=== PATIENT | male | born 1950 | race Hispanic/Latino ===

== ENCOUNTER → 2017-06-03 | Outpatient (CLI) | payer OTHER ==
[~2017-06-03] MED LIST: ASPI-1005 PO; CLOP75TA14 PO; FLUT16H NASAL; LISI10TA7 PO; METF10004 PO; METO25TA6 PO; MONT10TA24 PO; QUET25TA74 PO; RANO500T2 PO; REGADENOSON 0.4 MG/5 ML PF SYG IVP SCH; SIMV10TA6 PO
== END | disposition home or self-care (01) ==
LOC: RAH 09:04
PROVIDERS: ATTEND Internal Medicine Cardiovascular Disease
DX: I25.119 Atherosclerotic heart disease of native coronary artery with unspecified angina pectoris (principal); I10 Essential (primary) hypertension
CPT/HCPCS: 78452; 93017; 96374; A9500 ×2; J2785

== ENCOUNTER 2017-06-18 09:42 | Day surgery (SDC) | payer OTHER ==
[2017-06-16 14:46] VITALS: BP 151/77
[2017-06-16 14:58] LABS: BASOPHILS % (AUTO) 0.8 % (0.0-5.0); HEMATOCRIT 40.7 % (42-54); LYMPHOCYTES % (AUTO) 25.7 % (21.0-51.0); MEAN CORPUSCULAR HEMOGLOBIN 30.6 pg (27.0-33.0); MEAN CORPUSCULAR HGB CONC 34.3 g/dL (32.0-36.0); NEUTROPHILS % (AUTO) 63.5 % (40.0-77.0); PLATELET COUNT (AUTO) 140 K/uL (130-400); RED BLOOD CELL COUNT(AUTO) 4.57 MIL/uL (4.50-6.20); RED CELL DISTRIBUTION WIDTH 13.7 % (11.0-15.5)
[2017-06-16 15:04] LABS: CREATININE 0.9 mg/dL (0.5-1.5)
[2017-06-16 15:06] LABS: INR 1.02 (0.85-1.15); PROTHROMBIN TIME 10.7 SEC (9.6-11.6)
[2017-06-16 15:34] LABS: APPEARANCE,URINE Clear (CLEAR); BILIRUBIN,URINE Negative (NEGATIVE); COLOR,URINE Yellow (YELLOW); GLUCOSE, URINE (UA) Negative (NEGATIVE); KETONES,URINE Negative (NEGATIVE); LEUKOCYTE ESTERASE ,URINE Negative (NEGATIVE); NITRATE,URINE Negative (NEGATIVE); OCCULT BLOOD,URINE Negative (NEGATIVE); PROTEIN,URINE Negative (NEGATIVE); UROBILINOGEN,URINE 0.2 mg/dL (0.2-1.0)
[~2017-06-18] VITALS: Ht 175.3 cm; Wt 92.5 kg
[2017-06-18] VITALS (12 sets, daily range): BP systolic 108–141; BP diastolic 59–73
[~2017-06-18 09:42] MED LIST changes: -FLUT16H NASAL; -MONT10TA24 PO; -RANO500T2 PO; -REGADENOSON 0.4 MG/5 ML PF SYG IVP SCH
[2017-06-18] MEDS ORDERED: SODIUM CHLORIDE 0.9% 1000ML 1,000 ML IV ONE (09:55)
[2017-06-18] MEDS ORDERED: RANO500T2 PO (10:17)
[2017-06-18] MEDS ORDERED: LIDOCAINE HCL 2% 20ML ONE (10:44)
[2017-06-18] MEDS ORDERED: IOPAMIDOL-370 100 ML VIAL IV ONE (10:44)
[2017-06-18] MEDS ORDERED: BIVALIRUDIN 250 MG/VIAL IV ONE (10:44)
[2017-06-18] MEDS ORDERED: NITROGLYCERIN 5 MG/ML 10 ML VIAL IV ONE (10:44)
[2017-06-18] MEDS ORDERED: ISOVUE-370 50ML VIAL IV ONE (10:44)
[2017-06-18] MEDS ORDERED: HEPARIN SODIUM 1000UNIT/ML 10ML VIAL ONE (10:44)
[2017-06-18] MEDS ORDERED: MIDAZOLAM HCL 1 MG/ML 2ML VIAL ONE (11:18)
[2017-06-18] MEDS ORDERED: FENTANYL CITRATE PF 50 MCG/1 ML 2ML VIAL ONE (11:18)
[2017-06-18] MEDS ORDERED: SODIUM CHLORIDE 0.9% 1000ML 1,000 ML IV SCH (11:39)
[2017-06-18] MEDS ORDERED: ACETAMINOPHEN-CODEINE 300/30MG TAB PO PRN (11:45)
[2017-06-18] MEDS ORDERED: DEXTROSE 50%-WATER 50 ML DISP.SYRIN IV PRN (11:45)
[2017-06-18] MEDS ORDERED: NITROGLYCERIN 0.4 MG SL TAB SL PRN (11:45)
[2017-06-18] MEDS ORDERED: GLUCAGON 1MG KIT 1 MG ML IM PRN (11:45)
== END 2017-06-18 17:25 | disposition home or self-care (01) ==
LOC: DAH 09:42
PROVIDERS: ATTEND Internal Medicine Cardiovascular Disease
DX: I25.118 Atherosclerotic heart disease of native coronary artery with other forms of angina pectoris (principal); I25.2 Old myocardial infarction; Z79.899 Other long term (current) drug therapy; N40.0 Benign prostatic hyperplasia without lower urinary tract symptoms; E11.9 Type 2 diabetes mellitus without complications; Z79.84 Long term (current) use of oral hypoglycemic drugs; Z83.3 Family history of diabetes mellitus; I10 Essential (primary) hypertension
CPT/HCPCS: 36415; 71045; 80048; 81003; 82948 ×2; 85025; 85610; 85730; 93005; 93458; A4606; C1760; C1894 ×2; J1644; J2250; J3010; J3490 ×2; J7030; Q9967 ×2; 99152; 99153; J0583

== ENCOUNTER → 2017-08-06 | Outpatient (CLI) | payer OTHER ==
[~2017-08-06] MED LIST changes: +RANO500T2 PO
== END | disposition home or self-care (01) ==
LOC: RAH 11:00
PROVIDERS: ATTEND Internal Medicine Cardiovascular Disease
DX: I72.8 Aneurysm of other specified arteries (principal)
CPT/HCPCS: 76882

== ENCOUNTER → 2021-08-13 | Outpatient (CLI) | payer OTHER ==
[~2021-08-13] VITALS: Ht 180.3 cm; Wt 86.6 kg
[~2021-08-13] MED LIST changes: +AMLO-258 PO; +ATOR40TA69 PO; +LISI10TA24 PO; -LISI10TA7 PO; +METF-444 PO; +METF-446 PO; -METF10004 PO; +METO50TA18 PO; +OLME40TA18 PO; +QUET25TA36 PO; -QUET25TA74 PO; +REGADENOSON 0.4 MG/5 ML PF SYG IVP SCH; -SIMV10TA6 PO; +SIMV10TA97 PO
== END | disposition home or self-care (01) ==
LOC: SHCH 08:17
PROVIDERS: ATTEND Internal Medicine Cardiovascular Disease
DX: I25.119 Atherosclerotic heart disease of native coronary artery with unspecified angina pectoris (principal); I24.9 Acute ischemic heart disease, unspecified; I51.7 Cardiomegaly; R94.39 Abnormal result of other cardiovascular function study; Z95.5 Presence of coronary angioplasty implant and graft
CPT/HCPCS: 78452; 93017; 96374; A9500 ×2; J2785

== ENCOUNTER 2021-08-21 06:04 | Day surgery (SDC) | payer OTHER ==
[2021-08-20 11:35] LABS: BASOPHILS % (AUTO) 0.8 % (0.0-5.0); EOSINOPHILS % (AUTO) 2.3 % (0.0-8.0); MEAN CORPUSCULAR HEMOGLOBIN 31.3 pg (27.0-33.0); MEAN CORPUSCULAR HGB CONC 33.7 g/dL (32.0-36.0); MEAN CORPUSCULAR VOLUME 92.9 fL (79-99); MONOCYTES % (AUTO) 8.9 % (3.0-13.0); NEUTROPHILS % (AUTO) 56.7 % (40.0-77.0); PLATELET COUNT (AUTO) 142 K/uL (130-400); RED BLOOD CELL COUNT(AUTO) 4.09 MIL/uL (4.50-6.20); RED CELL DISTRIBUTION WIDTH 12.5 % (11.0-15.5); WHITE BLOOD COUNT (AUTO) 6.2 K/uL (4.8-10.8)
[2021-08-20 11:42] LABS: CREATININE 0.9 mg/dL (0.5-1.5); POTASSIUM 4.4 mmol/L (3.5-5.1)
[2021-08-20 12:02] LABS: B-TYPE NATRIURETIC PEPTIDE 62 pg/mL (0-100)
[2021-08-20 12:12] LABS: INR 1.08 (0.85-1.15); PARTIAL THROMBOPLASTIN TIME 26.1 SEC (26.3-35.5); PROTHROMBIN TIME 11.1 SEC (9.6-11.6)
[2021-08-20 12:34] LABS: APPEARANCE,URINE Clear (CLEAR); BILIRUBIN,URINE Negative (NEGATIVE); COLOR,URINE Yellow (YELLOW); GLUCOSE, URINE (UA) Negative (NEGATIVE); KETONES,URINE Negative (NEGATIVE); LEUKOCYTE ESTERASE ,URINE Negative (NEGATIVE); NITRATE,URINE Negative (NEGATIVE); OCCULT BLOOD,URINE Negative (NEGATIVE); PH,URINE 6.5 (5.0-8.0); PROTEIN,URINE Negative (NEGATIVE); UROBILINOGEN,URINE 0.2 mg/dL (0.2-1.0)
[2021-08-20 14:06] VITALS: BP 151/74
[2021-08-21] VITALS (14 sets, daily range): BP systolic 95–137; BP diastolic 53–68
[~2021-08-21] VITALS: Ht 180.3 cm; Wt 88.1 kg
[~2021-08-21 06:04] MED LIST changes: +0.9%NACL 1000ML 1,000 ML IV SCH; -ASPI-1005 PO; -LISI10TA24 PO; -METF-446 PO; -METO25TA6 PO; -RANO500T2 PO; -REGADENOSON 0.4 MG/5 ML PF SYG IVP SCH; -SIMV10TA97 PO
[2021-08-21] MEDS ORDERED: IOHEXOL-350 50ML VIAL IV ONE (07:09)
[2021-08-21] MEDS ORDERED: IOHEXOL 350 MG/ML 100ML INFUS..BTL IV ONE (07:09)
[2021-08-21] MEDS ORDERED: MIDAZOLAM HCL 1 MG/ML 2ML VIAL ONE (07:10)
[2021-08-21] MEDS ORDERED: FENTANYL CITRATE PF 50 MCG/1 ML 2ML VIAL ONE (07:10)
[2021-08-21] MEDS ORDERED: LIDOCAINE HCL 1% MDV 50ML VIAL ONE (07:10)
[2021-08-21] MEDS ORDERED: NITROGLYCERIN 50MG VIAL ONE (07:32)
[2021-08-21] MEDS ORDERED: BIVALIRUDIN 250 MG/VIAL IV ONE (07:44)
[2021-08-21] MEDS ORDERED: IOHEXOL-350 75 ML VIAL IV ONE (07:56)
[2021-08-21] MEDS ORDERED: ASPIRIN 81MG CHEW TAB ONE (08:26)
[2021-08-21] MEDS ORDERED: CLOPIDOGREL 300MG TAB ONE (08:27)
[2021-08-21] MEDS ORDERED: METOPROLOL TARTRATE 1 MG/ML 5ML VIAL IV PRN (09:00)
[2021-08-21] MEDS ORDERED: NITROGLYCERIN 0.4 MG SL TAB SL PRN (09:00)
[2021-08-21] MEDS ORDERED: HYDRALAZINE 20MG/ML VIAL IV PRN (09:00)
[2021-08-21] MEDS ORDERED: 0.9%NACL 1000ML 1,000 ML IV SCH (09:00)
[2021-08-21] MEDS ORDERED: GLUCAGON 1MG KIT 1 MG ML IM PRN (09:00)
[2021-08-21] MEDS ORDERED: 0.9% NACL 500ML IV.SOLN 500 ML IV SCH (09:00)
[2021-08-21] MEDS ORDERED: DEXTROSE 50%-WATER 50 ML DISP.SYRIN IV PRN (09:00)
[2021-08-21] MEDS ORDERED: ATROPINE 1MG SYG IVP ONE (10:09)
[2021-08-21] MEDS ORDERED: INSULIN HUMULIN R 100 UNIT/ML 3ML SQ SCH (11:30)
== END 2021-08-21 15:20 | disposition home or self-care (01) ==
LOC: DAH 06:04
PROVIDERS: ATTEND Internal Medicine Cardiovascular Disease
DX: I25.110 Atherosclerotic heart disease of native coronary artery with unstable angina pectoris (principal); I11.9 Hypertensive heart disease without heart failure; E11.59 Type 2 diabetes mellitus with other circulatory complications; E78.5 Hyperlipidemia, unspecified; G47.00 Insomnia, unspecified; I24.9 Acute ischemic heart disease, unspecified; Z79.01 Long term (current) use of anticoagulants; Z79.899 Other long term (current) drug therapy; Z98.890 Other specified postprocedural states; Z95.5 Presence of coronary angioplasty implant and graft; Z79.84 Long term (current) use of oral hypoglycemic drugs; Z82.49 Family history of ischemic heart disease and other diseases of the circulatory system; Z83.3 Family history of diabetes mellitus; Z87.891 Personal history of nicotine dependence
CPT/HCPCS: 36415; 71045; 80048; 81003; 82948 ×2; 83880; 85025; 85610; 85730; 93005 ×2; 93458; A4215; A4216; A4221; A4222; A4223 ×3; A4606; A4663; C1725; C1769; C1874; C1887; C1894 ×2; C9600; J0461; J0583; J1644 ×2; J2250; J3010; J3490 ×2; J7030 ×2; Q9965 ×2; Q9967 ×3; 99156; 99157

== ENCOUNTER 2021-08-27 17:40 | Inpatient (IN) | payer OTHER ==
[~2021-08-27] VITALS: Ht 180.3 cm; Wt 84.8 kg
[~2021-08-27 17:40] MED LIST changes: -0.9%NACL 1000ML 1,000 ML IV SCH
[2021-08-27 18:17] LABS: BASOPHILS % (AUTO) 0.6 % (0.0-5.0); EOSINOPHILS % (AUTO) 1.5 % (0.0-8.0); HEMATOCRIT 34.8 % (42-54); LYMPHOCYTES % (AUTO) 27.4 % (21.0-51.0); MEAN CORPUSCULAR HEMOGLOBIN 31.9 pg (27.0-33.0); MEAN CORPUSCULAR HGB CONC 35.1 g/dL (32.0-36.0); MEAN CORPUSCULAR VOLUME 91.1 fL (79-99); MONOCYTES % (AUTO) 9.6 % (3.0-13.0); NEUTROPHILS % (AUTO) 60.7 % (40.0-77.0); PLATELET COUNT (AUTO) 154 K/uL (130-400); RED BLOOD CELL COUNT(AUTO) 3.82 MIL/uL (4.50-6.20); RED CELL DISTRIBUTION WIDTH 12.5 % (11.0-15.5); WHITE BLOOD COUNT (AUTO) 5.4 K/uL (4.8-10.8)
[2021-08-27 18:22] LABS: POTASSIUM 3.6 mmol/L (3.5-5.1)
[2021-08-27] MEDS ORDERED: ASPIRIN 81MG CHEW TAB PO ONE (19:30)
[2021-08-27] MEDS: METOPROLOL TARTRATE 50 MG TAB PO SCH (23:50)
[2021-08-28] VITALS (7 sets, daily range): BP systolic 102–164; BP diastolic 49–76
[2021-08-28] MEDS ORDERED: NITROGLYCERIN 0.4 MG SL TAB SL PRN
[2021-08-28] MEDS ORDERED: POTASSIUM CHLORIDE 20MEQ/100ML 100 ML IV PRN
[2021-08-28] MEDS ORDERED: ZOLPIDEM TARTRATE 5 MG TAB PO PRN
[2021-08-28] MEDS ORDERED: MAGNESIUM 2GM PREMIX 50ML 50 ML IV PRN
[2021-08-28] MEDS ORDERED: POTASSIUM CHLORIDE 10% ELIXIR 20 MEQ/15 ML UDCUP PO PRN
[2021-08-28] MEDS ORDERED: GUAIFENESIN-DM 200/20 MG 10 ML PO PRN
[2021-08-28] MEDS ORDERED: GLUCAGON 1MG KIT 1 MG ML IM PRN
[2021-08-28] MEDS ORDERED: KCL 20 MEQ ERTAB PO PRN
[2021-08-28] MEDS ORDERED: MAG/ALUM/SIMETH 30 ML UDCUP PO PRN
[2021-08-28] MEDS ORDERED: ONDANSETRON 4MG INJ IV PRN
[2021-08-28] MEDS ORDERED: ACETAMINOPHEN 325 MG TAB PO PRN ×2
[2021-08-28] MEDS ORDERED: LACTULOSE 20 GM/30 ML UDCUP PO PRN
[2021-08-28] MEDS ORDERED: DEXTROSE 50%-WATER 50 ML DISP.SYRIN IV PRN
[2021-08-28] MEDS: ATORVASTATIN 40 MG TABLET PO SCH ×2 (00:22→20:09)
[2021-08-28] MEDS: ENOXAPARIN SODIUM 40 MG/0.4 ML SYRINGE SQ SCH ×2 (00:22→08:59)
[2021-08-28 06:01] LABS: BASOPHILS % (AUTO) 0.8 % (0.0-5.0); EOSINOPHILS % (AUTO) 1.7 % (0.0-8.0); HEMATOCRIT 34.1 % (42-54); LYMPHOCYTES % (AUTO) 31.5 % (21.0-51.0); MEAN CORPUSCULAR HEMOGLOBIN 31.1 pg (27.0-33.0); MEAN CORPUSCULAR HGB CONC 34.3 g/dL (32.0-36.0); MEAN CORPUSCULAR VOLUME 90.7 fL (79-99); MONOCYTES % (AUTO) 9.1 % (3.0-13.0); NEUTROPHILS % (AUTO) 56.6 % (40.0-77.0); PLATELET COUNT (AUTO) 143 K/uL (130-400); RED BLOOD CELL COUNT(AUTO) 3.76 MIL/uL (4.50-6.20); RED CELL DISTRIBUTION WIDTH 12.3 % (11.0-15.5)
[2021-08-28 06:11] LABS: ALBUMIN 3.5 g/dL (3.5-5.0); BILIRUBIN,TOTAL 0.5 mg/dL (0.2-1.0); CREATININE 0.8 mg/dL (0.5-1.5); POTASSIUM 3.5 mmol/L (3.5-5.1); TOTAL PROTEIN, SERUM 7.2 g/dL (6.0-8.3)
[2021-08-28] MEDS: INSULIN HUMULIN R 100 UNIT/ML 3ML SQ SCH ×4 (06:50→21:03)
[2021-08-28] MEDS: AMLODIPINE-BENAZEPRIL 5-10 MG PO SCH (08:58)
[2021-08-28] MEDS: CLOPIDOGREL 75MG TAB PO SCH (08:58)
[2021-08-28] MEDS: METOPROLOL TARTRATE 50 MG TAB PO SCH ×2 (08:58→20:09)
[2021-08-28] MEDS ORDERED: RANO500T6 PO (10:51)
[2021-08-28] MEDS ORDERED: ASPIRIN 81MG CHEW TAB PO ONE (12:30)
[2021-08-28] MEDS ORDERED: ENOXAPARIN SODIUM 80 MG/0.8 ML SQ SCH (18:30)
[2021-08-29 04:30] VITALS: BP 117/60
[2021-08-29 05:00] LABS: HEMATOCRIT 32.8 % (42-54); MEAN CORPUSCULAR HEMOGLOBIN 32.1 pg (27.0-33.0); MEAN CORPUSCULAR HGB CONC 35.4 g/dL (32.0-36.0); MEAN CORPUSCULAR VOLUME 90.9 fL (79-99); RED BLOOD CELL COUNT(AUTO) 3.61 MIL/uL (4.50-6.20); RED CELL DISTRIBUTION WIDTH 12.6 % (11.0-15.5); WHITE BLOOD COUNT (AUTO) 5.6 K/uL (4.8-10.8)
[2021-08-29 05:11] LABS: INR 1.1 (0.85-1.15); PROTHROMBIN TIME 11.9 SEC (9.6-11.6)
[2021-08-29 05:12] LABS: PARTIAL THROMBOPLASTIN TIME 29.6 SEC (26.3-35.5)
[2021-08-29 05:14] LABS: CREATININE 0.9 mg/dL (0.5-1.5); POTASSIUM 3.8 mmol/L (3.5-5.1)
[2021-08-29] MEDS: INSULIN HUMULIN R 100 UNIT/ML 3ML SQ SCH ×4 (06:20→20:55)
[2021-08-29 09:09] VITALS: BP 119/62
[2021-08-29] MEDS: ASPIRIN 81MG CHEW TAB PO SCH (11:03)
[2021-08-29] MEDS: METOPROLOL TARTRATE 50 MG TAB PO SCH ×2 (11:03→20:29)
[2021-08-29] MEDS: CLOPIDOGREL 75MG TAB PO SCH (11:04)
[2021-08-29] MEDS: AMLODIPINE-BENAZEPRIL 5-10 MG PO SCH (11:05)
[2021-08-29 11:08] VITALS: BP 125/66
[2021-08-29 12:00] VITALS: BP 124/63
[2021-08-29] MEDS ORDERED: MIDAZOLAM HCL 1 MG/ML 2ML VIAL ONE (15:48)
[2021-08-29] MEDS ORDERED: LIDOCAINE HCL 1% 20 ML VIAL ONE (15:48)
[2021-08-29] MEDS ORDERED: NITROGLYCERIN 50MG VIAL ONE (15:49)
[2021-08-29] MEDS ORDERED: IOHEXOL 350 MG/ML 100ML INFUS..BTL IV ONE (15:49)
[2021-08-29] MEDS ORDERED: IOHEXOL-350 50ML VIAL IV ONE (15:49)
[2021-08-29] MEDS ORDERED: FENTANYL CITRATE PF 50 MCG/1 ML 2ML VIAL ONE (15:49)
[2021-08-29] MEDS ORDERED: BIVALIRUDIN 250 MG/VIAL IV ONE (17:04)
[2021-08-29] MEDS ORDERED: 0.9%NACL 1000ML 1,000 ML IV SCH (18:00)
[2021-08-29] MEDS: ATORVASTATIN 40 MG TABLET PO SCH (20:55)
[2021-08-29] MEDS ORDERED: ENOXAPARIN SODIUM 80 MG/0.8 ML SQ SCH (21:00)
[2021-08-29 21:41] VITALS: BP 124/60
[2021-08-30 00:34] VITALS: BP 115/59
[2021-08-30 05:24] VITALS: BP 129/61
[2021-08-30 05:47] LABS: BASOPHILS % (AUTO) 0.5 % (0.0-5.0); EOSINOPHILS % (AUTO) 1.7 % (0.0-8.0); HEMATOCRIT 34.4 % (42-54); LYMPHOCYTES % (AUTO) 24.8 % (21.0-51.0); MEAN CORPUSCULAR HEMOGLOBIN 31.1 pg (27.0-33.0); MEAN CORPUSCULAR HGB CONC 33.4 g/dL (32.0-36.0); MONOCYTES % (AUTO) 7.4 % (3.0-13.0); NEUTROPHILS % (AUTO) 65.4 % (40.0-77.0); PLATELET COUNT (AUTO) 118 K/uL (130-400); RED CELL DISTRIBUTION WIDTH 12.7 % (11.0-15.5); WHITE BLOOD COUNT (AUTO) 5.8 K/uL (4.8-10.8)
[2021-08-30 06:02] LABS: ALBUMIN 3.3 g/dL (3.5-5.0); BILIRUBIN,TOTAL 0.5 mg/dL (0.2-1.0); CREATININE 0.7 mg/dL (0.5-1.5); POTASSIUM 3.4 mmol/L (3.5-5.1); TOTAL PROTEIN, SERUM 6.6 g/dL (6.0-8.3)
[2021-08-30] MEDS: INSULIN HUMULIN R 100 UNIT/ML 3ML SQ SCH ×3 (06:47→16:30)
[2021-08-30 08:00] VITALS: BP 116/56
[2021-08-30] MEDS: ASPIRIN 81MG CHEW TAB PO SCH (09:24)
[2021-08-30] MEDS: AMLODIPINE-BENAZEPRIL 5-10 MG PO SCH (09:25)
[2021-08-30] MEDS: METOPROLOL TARTRATE 50 MG TAB PO SCH (09:25)
[2021-08-30] MEDS: CLOPIDOGREL 75MG TAB PO SCH (09:25)
[2021-08-30 12:00] VITALS: BP 143/86
[2021-08-30 16:00] VITALS: BP 127/63
[2021-08-30] MEDS ORDERED: ASPI-1005 PO (17:25)
== END 2021-08-30 18:20 | disposition home or self-care (01) | DRG 246 ==
LOC: EDH 17:40 → OBSVTOIN 23:13 → EDHIP 23:13 → UNDOADMOB 23:13 → INTOOBSV 23:13 → EDHIP 08-28 00:16 → 3BH 08-28 00:16 → UNDODISIN 08-30 18:20
PROVIDERS: ADMIT Internal Medicine Critical Care Medicine; ATTEND Internal Medicine Critical Care Medicine
PROC: 027034Z Dilation of Coronary Artery, One Artery with Drug-eluting Intraluminal Device, Percutaneous Approach (ICD-10-PCS; principal; 2021-08-29)
PROC: B211YZZ Fluoroscopy of Multiple Coronary Arteries using Other Contrast (ICD-10-PCS; 2021-08-29)
DX: I21.4 Non-ST elevation (NSTEMI) myocardial infarction (principal); I50.31 Acute diastolic (congestive) heart failure; I25.10 Atherosclerotic heart disease of native coronary artery without angina pectoris; Z95.5 Presence of coronary angioplasty implant and graft; I25.2 Old myocardial infarction; I11.0 Hypertensive heart disease with heart failure; Z90.49 Acquired absence of other specified parts of digestive tract; N40.0 Benign prostatic hyperplasia without lower urinary tract symptoms; E78.5 Hyperlipidemia, unspecified; E11.9 Type 2 diabetes mellitus without complications; Z83.3 Family history of diabetes mellitus; Z82.49 Family history of ischemic heart disease and other diseases of the circulatory system; Z79.899 Other long term (current) drug therapy
CPT/HCPCS: 36415; 80048; 80053; 82948; 84484; 85025; 85027; 85610; 85730; 93005; 93306; 93454; 99156; 99157; C1769; C1887; C1894; C9600; G0378; J0583; J1644; J1650; J1815; J2250; J3010; J3490; Q9967

== ENCOUNTER 2022-06-06 12:52 | Inpatient (IN) | payer OTHER ==
[~2022-06-06] VITALS: Ht 180.3 cm; Wt 81.7 kg
[~2022-06-06 12:52] MED LIST changes: +ASPI-1005 PO; +CLOP-31 PO; -CLOP75TA14 PO; +RANO500T6 PO
[2022-06-06] MEDS ORDERED: FAMOTIDINE 20MG VIAL IV ONE (13:30)
[2022-06-06 13:38] LABS: BASOPHILS % (AUTO) 0.9 % (0.0-5.0); EOSINOPHILS % (AUTO) 0.7 % (0.0-8.0); HEMATOCRIT 38.3 % (42-54); LYMPHOCYTES % (AUTO) 21.7 % (21.0-51.0); MEAN CORPUSCULAR HEMOGLOBIN 31.8 pg (27.0-33.0); MEAN CORPUSCULAR HGB CONC 35.2 g/dL (32.0-36.0); MEAN CORPUSCULAR VOLUME 90.3 fL (79-99); MONOCYTES % (AUTO) 8.4 % (3.0-13.0); PLATELET COUNT (AUTO) 152 K/uL (130-400); RED BLOOD CELL COUNT(AUTO) 4.24 MIL/uL (4.50-6.20); RED CELL DISTRIBUTION WIDTH 12.1 % (11.0-15.5); WHITE BLOOD COUNT (AUTO) 5.9 K/uL (4.8-10.8)
[2022-06-06 14:01] LABS: ALBUMIN 3.8 g/dL (3.5-5.0); CREATININE 0.9 mg/dL (0.5-1.5); POTASSIUM 3.8 mmol/L (3.5-5.1); TOTAL PROTEIN, SERUM 7.3 g/dL (6.0-8.3)
[2022-06-06 15:30] LABS: INR 1.04 (0.85-1.15); PROTHROMBIN TIME 11.3 SEC (9.6-11.6)
[2022-06-06] MEDS ORDERED: CLOPIDOGREL 300MG TAB PO ONE (15:30)
[2022-06-06 15:32] LABS: PARTIAL THROMBOPLASTIN TIME 29.2 SEC (26.3-35.5)
[2022-06-06] MEDS ORDERED: ASPIRIN 81MG CHEW TAB ONE (15:41)
[2022-06-06] MEDS ORDERED: ASPIRIN 325MG EC TAB PO ONE (15:43)
[2022-06-06] MEDS ORDERED: HYDRALAZINE 20MG/ML VIAL IV PRN (16:00)
[2022-06-06 18:20] LABS: AMPHET/METH SCREEN,URINE NEGATIVE (NEGATIVE); BARBITURATE SCREEN, URINE NEGATIVE (NEGATIVE); BENZODIAZEPINES SCREEN,URINE NEGATIVE (NEGATIVE); CANNABINOID SCREEN,URINE NEGATIVE (NEGATIVE); COCAINE SCREEN,URINE NEGATIVE (NEGATIVE); OPIATE SCREEN,URINE NEGATIVE (NEGATIVE); PHENCYCLIDINE SCREEN,URINE NEGATIVE (NEGATIVE)
[2022-06-06] MEDS: ATORVASTATIN 40 MG TABLET PO SCH (20:16)
[2022-06-06] MEDS: FAMOTIDINE 20MG TAB PO SCH (20:16)
[2022-06-06] MEDS: METOPROLOL TARTRATE 50 MG TAB PO SCH (20:17)
[2022-06-06] MEDS: AMLODIPINE 5 MG TAB PO SCH (20:17)
[2022-06-06] MEDS: INSULIN HUMULIN R 100 UNIT/ML 3ML SQ SCH (20:17)
[2022-06-06 22:38] VITALS: BP 143/83
[2022-06-06 22:38] LABS: INR 1.04 (0.85-1.15); PROTHROMBIN TIME 11.3 SEC (9.6-11.6)
[2022-06-06 22:40] LABS: PARTIAL THROMBOPLASTIN TIME 79.8 SEC (26.3-35.5)
[2022-06-06] MEDS: QUETIAPINE FUMARATE 25 MG TAB PO SCH (23:25)
[2022-06-07 00:15] VITALS: BP 156/78
[2022-06-07 04:20] VITALS: BP 123/68
[2022-06-07 05:36] LABS: BASOPHILS % (AUTO) 0.7 % (0.0-5.0); EOSINOPHILS % (AUTO) 1.9 % (0.0-8.0); HEMATOCRIT 36.8 % (42-54); LYMPHOCYTES % (AUTO) 30.9 % (21.0-51.0); MEAN CORPUSCULAR HGB CONC 35.1 g/dL (32.0-36.0); MEAN CORPUSCULAR VOLUME 91.3 fL (79-99); MONOCYTES % (AUTO) 9.4 % (3.0-13.0); NEUTROPHILS % (AUTO) 56.9 % (40.0-77.0); PLATELET COUNT (AUTO) 149 K/uL (130-400); RED BLOOD CELL COUNT(AUTO) 4.03 MIL/uL (4.50-6.20); WHITE BLOOD COUNT (AUTO) 5.8 K/uL (4.8-10.8)
[2022-06-07 05:46] LABS: CREATININE 0.9 mg/dL (0.5-1.5); POTASSIUM 3.5 mmol/L (3.5-5.1)
[2022-06-07] MEDS: INSULIN HUMULIN R 100 UNIT/ML 3ML SQ SCH ×4 (06:37→20:35)
[2022-06-07 07:59] VITALS: BP 129/66
[2022-06-07] MEDS: ASPIRIN 81MG CHEW TAB PO SCH (08:55)
[2022-06-07] MEDS: LOSARTAN 100 MG TABLET PO SCH (08:55)
[2022-06-07] MEDS: FAMOTIDINE 20MG TAB PO SCH ×2 (08:55→20:03)
[2022-06-07] MEDS: METOPROLOL TARTRATE 50 MG TAB PO SCH ×2 (08:55→20:03)
[2022-06-07] MEDS: CLOPIDOGREL 75MG TAB PO SCH (08:57)
[2022-06-07] MEDS ORDERED: ASPIRIN 325MG EC TAB PO SCH (09:00)
[2022-06-07] MEDS ORDERED: REGADENOSON 0.4 MG/5 ML PF SYG IVP SCH (10:00)
[2022-06-07] MEDS: HEPARIN 25,000 UNITS/250ML D5W 250 ML IV SCH (10:30)
[2022-06-07 10:40] VITALS: BP 125/71
[2022-06-07 16:00] VITALS: BP 144/68
[2022-06-07 19:00] VITALS: BP 128/67
[2022-06-07] MEDS: QUETIAPINE FUMARATE 25 MG TAB PO SCH (20:03)
[2022-06-07] MEDS: AMLODIPINE 5 MG TAB PO SCH (20:03)
[2022-06-07] MEDS: ATORVASTATIN 40 MG TABLET PO SCH (20:03)
[2022-06-08] VITALS: BP 128/63
[2022-06-08 03:00] VITALS: BP 118/62
[2022-06-08] MEDS: INSULIN HUMULIN R 100 UNIT/ML 3ML SQ SCH ×2 (06:17→11:30)
[2022-06-08] MEDS: HEPARIN 25,000 UNITS/250ML D5W 250 ML IV SCH (06:28)
[2022-06-08 07:38] VITALS: BP 128/67
[2022-06-08 08:43] LABS: HEMATOCRIT 40.7 % (42-54); MEAN CORPUSCULAR HEMOGLOBIN 31.9 pg (27.0-33.0); MEAN CORPUSCULAR HGB CONC 33.7 g/dL (32.0-36.0); MEAN CORPUSCULAR VOLUME 94.7 fL (79-99); PLATELET COUNT (AUTO) 145 K/uL (130-400); RED CELL DISTRIBUTION WIDTH 12.2 % (11.0-15.5); WHITE BLOOD COUNT (AUTO) 6.1 K/uL (4.8-10.8)
[2022-06-08 08:46] LABS: CREATININE 0.8 mg/dL (0.5-1.5); POTASSIUM 4.1 mmol/L (3.5-5.1)
[2022-06-08 09:08] LABS: LYMPHOCYTES % (MANUAL) 39 % (22-44); MAN.DIFF COMMENT-IMPRESSION MANUAL DIFFERENTIAL; MONOCYTES % (MANUAL) 6 % (2-9); SEGMENTED NEUTROPHILS % 55 % (40-70)
[2022-06-08 09:09] LABS: PLATELET MORPHOLOGY COMMENT ADEQUATE
[2022-06-08] MEDS: ASPIRIN 81MG CHEW TAB PO SCH (10:28)
[2022-06-08] MEDS: METOPROLOL TARTRATE 50 MG TAB PO SCH (10:28)
[2022-06-08] MEDS: CLOPIDOGREL 75MG TAB PO SCH (10:28)
[2022-06-08] MEDS: FAMOTIDINE 20MG TAB PO SCH (10:28)
[2022-06-08] MEDS: LOSARTAN 100 MG TABLET PO SCH (10:29)
[2022-06-08 11:00] VITALS: BP 127/65
[2022-06-08] MEDS ORDERED: ATOR40TA69 PO (12:34)
[2022-06-08] MEDS ORDERED: CLOP-31 PO (12:34)
[2022-06-08] MEDS ORDERED: ASPI-1005 PO (12:34)
== END 2022-06-08 14:07 | disposition home or self-care (01) | DRG 282 ==
LOC: EDH 12:52 → EDHIP 15:45 → 2DH 22:09
PROVIDERS: ADMIT Internal Medicine; ATTEND Internal Medicine
DX: I21.4 Non-ST elevation (NSTEMI) myocardial infarction (principal); E11.9 Type 2 diabetes mellitus without complications; E78.5 Hyperlipidemia, unspecified; I10 Essential (primary) hypertension; I25.10 Atherosclerotic heart disease of native coronary artery without angina pectoris; N40.0 Benign prostatic hyperplasia without lower urinary tract symptoms; I25.2 Old myocardial infarction; Z79.02 Long term (current) use of antithrombotics/antiplatelets; Z82.49 Family history of ischemic heart disease and other diseases of the circulatory system; Z83.3 Family history of diabetes mellitus; Z87.891 Personal history of nicotine dependence; Z90.49 Acquired absence of other specified parts of digestive tract; Z95.5 Presence of coronary angioplasty implant and graft
CPT/HCPCS: 36415; 70450; 71045; 78452; 80048; 80053; 80305; 82948; 83036; 83690; 83735; 84443; 84484; 85025; 85610; 85730; 93005; 93017; 93306; 93356; 96374; A9500; G0378; J1644; J1815; J2785; J3490

== ENCOUNTER 2022-11-26 16:43 | Emergency (ER) | payer OTHER ==
[~2022-11-26] VITALS: Ht 180.3 cm; Wt 89.8 kg
[2022-11-26 22:14] LABS: APPEARANCE,URINE CLEAR (CLEAR); BILIRUBIN,URINE NEGATIVE (NEGATIVE); COLOR,URINE COLORLESS (YELLOW); GLUCOSE, URINE (UA) 500 mg/dL (NEGATIVE); KETONES,URINE NEGATIVE (NEGATIVE); LEUKOCYTE ESTERASE ,URINE NEGATIVE Leu/uL (NEGATIVE); NITRATE,URINE NEGATIVE (NEGATIVE); OCCULT BLOOD,URINE LARGE (NEGATIVE); PROTEIN,URINE NEGATIVE (NEGATIVE); UROBILINOGEN,URINE 0.2 mg/dL (0.2-1.0)
[2022-11-26 22:17] LABS: BASOPHILS % (AUTO) 0.8 % (0.0-5.0); EOSINOPHILS % (AUTO) 2.9 % (0.0-8.0); HEMATOCRIT 38.9 % (42-54); LYMPHOCYTES % (AUTO) 25.6 % (21.0-51.0); MEAN CORPUSCULAR HEMOGLOBIN 31.3 pg (27.0-33.0); MEAN CORPUSCULAR HGB CONC 34.2 g/dL (32.0-36.0); MEAN CORPUSCULAR VOLUME 91.5 fL (79-99); MONOCYTES % (AUTO) 8.2 % (3.0-13.0); NEUTROPHILS % (AUTO) 62.2 % (40.0-77.0); PLATELET COUNT (AUTO) 156 K/uL (130-400); RED BLOOD CELL COUNT(AUTO) 4.25 MIL/uL (4.50-6.20); WHITE BLOOD COUNT (AUTO) 6.6 K/uL (4.8-10.8)
[2022-11-26 22:21] LABS: BACTERIA,URINE RARE /HPF (None Seen)
[2022-11-26 22:27] LABS: CREATININE 0.9 mg/dL (0.5-1.5); POTASSIUM 3.7 mmol/L (3.5-5.1)
[2022-11-26 23:54] VITALS: BP 158/74
== END 2022-11-26 23:59 | disposition home or self-care (01) ==
LOC: EDH 16:43
DX: N20.0 Calculus of kidney (principal); R31.9 Hematuria, unspecified; E11.9 Type 2 diabetes mellitus without complications; I10 Essential (primary) hypertension; Z79.02 Long term (current) use of antithrombotics/antiplatelets; Z79.82 Long term (current) use of aspirin; Z79.84 Long term (current) use of oral hypoglycemic drugs; Z95.5 Presence of coronary angioplasty implant and graft
CPT/HCPCS: 36415; 74176; 80053; 81001; 85025